=== PATIENT | female | born 1960 | race Caucasian/White ===

== ENCOUNTER → 2023-07-02 06:29 | Day surgery (SDC) | payer OTHER, SELFPAY | LOC: GI 06:29 | PROVIDERS: ATTENDING PHYSICIAN Internal Medicine Gastroenterology | DX: Z12.11 Encounter for screening for malignant neoplasm of colon (principal); D12.0 Benign neoplasm of cecum; K57.30 Diverticulosis of large intestine without perforation or abscess without bleeding; K64.8 Other hemorrhoids | CPT/HCPCS: 45385; 88305 ==

== ENCOUNTER → 2023-07-30 14:23 | Outpatient (REF) | payer OTHER, SELFPAY | LOC: WDC 14:23 | PROVIDERS: ATTENDING PHYSICIAN Nurse Practitioner Obstetrics & Gynecology; FAMILY PHYSICIAN Family Medicine | DX: Z12.31 Encounter for screening mammogram for malignant neoplasm of breast (principal) | CPT/HCPCS: 77063; 77067 ==

== ENCOUNTER → 2024-03-18 12:48 | Outpatient (REF) | payer OTHER, SELFPAY | LOC: WDC 12:48 | PROVIDERS: ATTENDING PHYSICIAN Nurse Practitioner Obstetrics & Gynecology; FAMILY PHYSICIAN Family Medicine | DX: R92.2 Inconclusive mammogram (principal); R92.30 Dense breasts, unspecified | CPT/HCPCS: 76641 ==

== ENCOUNTER → 2024-08-03 15:29 | Outpatient (REF) | payer BC, SELFPAY | LOC: WDC 15:29 | PROVIDERS: ATTENDING PHYSICIAN Nurse Practitioner Obstetrics & Gynecology; FAMILY PHYSICIAN Family Medicine | DX: Z12.31 Encounter for screening mammogram for malignant neoplasm of breast (principal) | CPT/HCPCS: 77063; 77067 ==

== ENCOUNTER → 2025-03-23 07:57 | Outpatient (REF) | payer BC, SELFPAY | LOC: RAD 07:57 | PROVIDERS: ATTENDING PHYSICIAN Student in an Organized Health Care Education/Training Program | DX: R10.31 Right lower quadrant pain (principal) | CPT/HCPCS: 76830; 76856 ==

== ENCOUNTER 2025-04-24 11:47 | Emergency (ER) | payer BC, SELFPAY ==
[2025-04-24 11:50] VITALS: BP 125/79
[2025-04-24 12:56] LABS: Hematocrit 36.4 % (37.0-47.0); Hemoglobin 11.9 g/dL (12.0-16.0); Mean Corp Hgb Conc. 32.7 g/dL (33.0-37.0); Mean Corpuscular Volume 88.6 fL (81.0-99.0); Nucleated Red Blood Cells % 0 %; Platelet Count 275 10^3/uL (130-400); Red Cell Dist. Width 13.4 % (11.5-14.5)
[2025-04-24 13:17] LABS: ALT (SGPT) 16 U/L (0-35); AST (SGOT) 21 U/L (14-36); Albumin 4.1 g/dl (3.5-5.0); Alkaline Phosphatase 79 U/L (38-126); Blood Urea Nitrogen 14 mg/dl (7-17); Calcium 9.5 mg/dl (8.4-10.2); Carbon Dioxide 25 mmol/L (22-30); Chloride 105 mmol/L (98-107); Glucose 89 mg/dl (70-99); Lipase 80 U/L (23-300); Potassium 4.7 mmol/L (3.5-5.1); Sodium 138 mmol/L (135-145); Total Protein 7.5 g/dl (6.3-8.2); eGFR > 60.00
--- NOTE | 2025-04-24 13:37 | ED.GENMED ---
History of Present Illness
General
Chief Complaint: Abdominal Symptoms
Source: patient
Exam Limitations: none
Time Seen by Provider: 04/24/25 12:56
Nursing documentation reviewed up to this point in time: agreed with
History of Present Illness
History of Present Illness:
Patient is a healthy 64-year-old female who presents to the emergency department for evaluation of abdominal pain. Patient describes a relatively constant, dull ache across her lower abdomen over the past 2 weeks. She reports intermittent
radiation into her back over no sharp pain. Symptoms seem exacerbated by movement and she typically does not feel pain at rest. A few days ago she reports a subjective low-grade fever. She denies any obvious dysuria or hematuria however has felt
increased urinary urgency. No diarrhea or constipation. No nausea, vomiting, or anorexia.
Patient was seen in urgent care facility today where she had a unremarkable urinalysis and was ultimately sent to the room for further evaluation.
Patient denies any history of similar symptoms
Review of Systems
Review of Systems
Allergies reviewed?: Yes
All Other Systems: ROS reviewed and negative except as documented in HPI and ROS
Phy Exam
Physical Exam
Physical Exam:
Vitals: Patient's vital signs are stable. Afebrile
General: Patient is well appearing, no acute distress. Nontoxic-appearing
Skin: Warm and dry, no rashes or lesions
Head: Normocephalic, atraumatic
Eyes: Sclera nonicteric.
Throat: Protecting airway
Neck: Normal ROM, no cervical spine tenderness, no meningismus
Cardiac: Regular rate and rhythm, no murmurs.
Pulm: Normal respiratory effort. Lungs clear bilaterally
Abdomen: Abdomen soft. Focal tenderness in left lower quadrant. No rebound or guarding.
Extremities: No evidence of cyanosis or edema
Neuro: AAOx3. Grossly intact
Psychiatric: Normal affect.
Course
Orders/Labs/Results
Orders:
Orders
04/24/25 12:40
Complete Blood Count/With Diff Urgent
Comprehensive Metabolic Panel Urgent
Lipase Urgent
04/24/25 13:24
0.9% Sodium Chloride 1000 ml [Nss] 1,000 ml IV BOLUS
04/24/25 13:25
CT Abd/pelvis W Iv Cont Urgent
Comment:
Reason For Exam: LLQ pain
04/24/25 14:01
Urinalysis Reflex To Culture Urgent
Date Specimen was Collected: 04/24/25
Time Specimen was Collected: 14:00
Urine Microscopic Reflex Cult Urgent
Urine Culture Urgent
GARRISON Source: U
Specimen Description:
Date Specimen was Collected: 04/24/25
Time Specimen was Collected: 14:00
04/24/25 15:46
Amoxicillin 875 mg/Clav 125 mg [Augmentin 875 mg/125 mg] 1 tablet PO NOW STA
Abnormal Lab Results
04/24/25 04/24/25
12:40 14:01
RBC 4.11 L 10^6/uL
(4.20-5.40)
Hgb 11.9 L g/dL
(12.0-16.0)
Hct 36.4 L %
(37.0-47.0)
MCHC 32.7 L g/dL
(33.0-37.0)
Immature Gran % 0.7 H %
(0-0.5)
Leukocyte Esterase Rfl 1+ A
(Negative)
Urine RBC 3-6 A /HPF
(0-2)
Urine Bacteria (Reflex) Few A
(Negative)
04/24/25 12:40
04/24/25 12:40
Vital Signs
Initial and Last Documented VS:
Initial Vital Signs
Temp Pulse Resp BP Pulse Ox
98.5 F 80 17 125/79 99
04/24/25 11:50 04/24/25 11:50 04/24/25 11:50 04/24/25 11:50 04/24/25 11:50
Last Documented Vital Signs
Temp Pulse Resp BP Pulse Ox
98.5 F 80 17 125/79 99
04/24/25 11:50 04/24/25 11:50 04/24/25 11:50 04/24/25 11:50 04/24/25 13:41
MDM/Problems Addressed
Differential Diagnosis Includes:
Not limited to: Diverticulitis, colitis, renal colic, pyelonephritis/UTI, ovarian cyst, etc.
MDM/Problems Addressed:
64-year-old female with approximately two weeks of lower abdominal discomfort. No associated fever, vomiting, anorexia, changes in bowel habits, or dysuria.
Vitals stable. On exam, patient appears in no distress. She is well appearing and nontoxic. Abdomen is soft w/ area of focal tenderness in left lower quadrant. No rebound or guarding. Cardio/pulmonary assessment unremarkable.
Differential includes diverticulitis, colitis, pyelonephritis, renal colic, etc.
ED plan: labs, UA, CT scan abdomen/pelvis with IV contrast. Patient declines analgesia.
Update: Labs unremarkable. UA shows no evidence of acute infection. CT scan shows acute uncomplicated sigmoid diverticulitis.
As patient is afebrile with no leukocytosis and well managed pain � feel appropriate for outpatient management with oral antibiotics. Will start patient on course of Augmentin. I did discuss clear liquid diet, importance of staying well hydrated,
Tylenol/Motrin for pain. She will follow up with her primary care provider within one week for further evaluation. Strict return precautions were discussed. Patient is comfortable with plan.
Chronic conditions affecting care:
N/A
Acute Exacerbation and/or Progression of Chronic Illness:
N/A
*Radiology
Radiology exam reviewed: radiology read reviewed
*Pulse Oximetry
SaO2: 99
Oxygen Mode of Delivery: Room air
Patient hypoxic: no
*EKG
Interpreted by ED Provider?: NA
*Fitter Placer Interpretation
Rate: Fitter Placer- N/A
*Critical Care Note
Total Time (30-74mins, 75-104mins- exclusive of procedures): Not Applicable
ED Attending Note
-
Portions of this chart may have been created with voice recognition software.� Occasional wrong word or��sound alike� substitutions may have occurred due to the inherent limitations of voice recognition software.
Discharge Plan
Departure
Patient Disposition: Home (Routine Discharge)
Date of Disposition: 04/24/25
Time of Disposition: 15:48
Patient with high blood pressure during this ER visit?: No
Condition: Good
Discharge Problem:
Acute diverticulitis
Instructions: Diverticulitis (DC), Clear Liquid Diet
Prescriptions:
New
amoxicillin-pot clavulanate 875-125 mg tablet
1 tab PO BID 10 Days Qty: 20 0RF
Referrals:
Rosa Gonzalez MD [Family Provider, [facility]] - Follow up in 5-7 days
Activity Restrictions/Additional Instructions:
RETURN TO THE EMERGENCY DEPARTMENT WITH ANY FEVER, PERSISTENT/WORSENING ABDOMINAL PAIN, INTRACTABLE NAUSEA/VOMITING, WORSENING IN CURRENT SYMPTOMS, OR ANY OTHER CONCERNS
- As discussed, your CT scan showed evidence of uncomplicated sigmoid diverticulitis. Your lab work showed no acute abnormalities.
- A course of antibiotics has been sent to your pharmacy. Please take twice a day for the next 10 days. You can take Tylenol and/or Motrin as needed for pain. I would recommend a clear liquid diet over the next 2 days and slowly advance to low
fiber. It is important to stay well-hydrated
- Follow-up with your primary care provider within 1 week to ensure that symptoms are improving
Monitor your symptoms closely and return to the emergency department with any acute worsening /new symptoms or any other concerns
Interventions
Interventions:
*Risk Screen - Suicide Last Done: 04/24/25 11:51
*General Assessment Last Done: 04/24/25 11:51
*Neglect/Abuse Screening Last Done: 04/24/25 11:51
*ED COVID-19 Vaccine History Last Done: 04/24/25 11:51
*ED Influenza Vaccine History Last Done: 04/24/25 11:51
[facility] Fall Risk Assessment Tool Last Done: 04/24/25 12:55
*Nursing Disposition Last Done: 04/24/25 16:23
TH-Qidhzr-Yswcnbgbsq Assessment Last Done: 04/24/25 12:30
Discharge Date and Time
Discharge Date/Time: 04/24/25 16:23
Print Language: MALTESE
[2025-04-24] MEDS: NSS 1000 IV (14:00)
[2025-04-24 14:10] LABS: Urine Character Clear (Clear)
[2025-04-24] MEDS: AUGMENTIN 875 MG/125 MG 1 TABLET PO (15:53)
== END 2025-04-24 16:23 | disposition home or self-care (01) ==
LOC: EMR 11:47
PROVIDERS: Physician Assistant; EMERGENCY PHYSICIAN Emergency Medicine; FAMILY PHYSICIAN Student in an Organized Health Care Education/Training Program
DX: K57.32 Diverticulitis of large intestine without perforation or abscess without bleeding (principal)
CPT/HCPCS: 99284; 96360; 74177; 80053; 81003; 81015; 83690; 85025; 87086; Q9967

== ENCOUNTER → 2025-04-29 13:53 | Outpatient (REF) | payer BC, SELFPAY | LOC: WDC 13:53 | PROVIDERS: ATTENDING PHYSICIAN Nurse Practitioner Obstetrics & Gynecology; FAMILY PHYSICIAN Student in an Organized Health Care Education/Training Program | DX: R92.30 Dense breasts, unspecified (principal) | CPT/HCPCS: 76641 ==